=== PATIENT | male | born 1980 | race Caucasian/White ===

== ENCOUNTER 2017-10-31 09:16 | Day surgery (SDC) | payer BC ==
[~2017-10-31] VITALS: Ht 182.9 cm; Wt 103.3 kg
[2017-10-31 09:33] VITALS: BP 119/91; PULSE 73; TEMP 98.5
[2017-10-31] MEDS ORDERED: LOTREL 5/20 CAP1 CAP PO (09:35)
[2017-10-31 11:20] VITALS: BP 109/76; PULSE 80; TEMP 97.8
[2017-10-31 11:39] VITALS: BP 107/70; PULSE 76
[2017-10-31 11:50] VITALS: BP 106/69; PULSE 78
== END 2017-10-31 11:55 | disposition home or self-care (01) ==
LOC: SDCO 09:16
DX: Z12.11 Encounter for screening for malignant neoplasm of colon (principal); Z80.0 Family history of malignant neoplasm of digestive organs; D12.2 Benign neoplasm of ascending colon; K57.30 Diverticulosis of large intestine without perforation or abscess without bleeding
CPT/HCPCS: J2250; J3010; J7030